=== PATIENT | male | born 1965 | race Caucasian/White ===

== ENCOUNTER 2018-10-11 11:24 | Outpatient (CLI) | payer OTHER, SELFPAY ==
[2018-10-11 13:00] LABS: Cholesterol 194 mg/dL (50-200); HDL Cholesterol 71 mg/dL (40-60); Hemoglobin A1C 5.4 % (4.5-6.2); LDL CHOLESTEROL 108 mg/dL (<100); Triglyceride 71 mg/dL (30-150)
[2018-10-12 10:25] LABS: PSA, Screening 0.5 ng/ml (0-3.5)
== END 2018-10-11 11:44 ==
PROVIDERS: PCP Emergency Medicine; Visit Provider Emergency Medicine
DX: Z00.00 Encounter for general adult medical examination without abnormal findings (principal); E11.9 Type 2 diabetes mellitus without complications; Z12.5 Encounter for screening for malignant neoplasm of prostate; Z13.220 Encounter for screening for lipoid disorders
CPT/HCPCS: 36415; 80061; 83721; 84153; 83036

== ENCOUNTER 2019-10-12 07:00 | Outpatient (CLI) | payer OTHER, SELFPAY ==
[2019-10-12 12:38] LABS: Anion Gap 9.3 mmol/L (3-11); BUN 17 mg/dL (7-18); CO2 29.7 mmol/L (21.0-32.0); CREATININE 0.71 mg/dL (0.70-1.30); Calcium 9.7 mg/dL (8.5-10.1); Chloride 102 mmol/L (98-107); Glucose 95 mg/dL (74-106); Potassium 4.2 mmol/L (3.5-5.1); Sodium 141 mmol/L (136-145)
== END 2019-10-12 07:20 ==
PROVIDERS: PCP Emergency Medicine; Visit Provider Emergency Medicine
DX: I10 Essential (primary) hypertension (principal)
CPT/HCPCS: 36415; 80048

== ENCOUNTER 2021-12-11 01:47 | Outpatient (CLI) | payer BC, SELFPAY ==
[2021-12-11 14:40] LABS: Anion Gap 9.5 mmol/L (3-11); BUN 16 mg/dL (7-18); CO2 28.5 mmol/L (21.0-32.0); CREATININE 0.7 mg/dL (0.70-1.30); Chloride 101 mmol/L (98-107); Glucose 128 mg/dL (74-106); Sodium 139 mmol/L (136-145)
[2021-12-11 22:20] LABS: PSA, Screening 0.5 ng/mL (0.0-3.5)
== END 2021-12-11 01:48 | disposition home or self-care (01) ==
LOC: LBO 01:47
PROVIDERS: Emergency Medicine; PCP Family Medicine; Visit Provider Family Medicine
DX: Z12.5 Encounter for screening for malignant neoplasm of prostate (principal); I10 Essential (primary) hypertension
CPT/HCPCS: 36415; 80048; 84153

== ENCOUNTER 2022-11-10 07:33 | Day surgery (SDC) | payer OTHER, SELFPAY ==
--- NOTE | 2022-11-09 20:02 | W.PM.DSUDISC ---
Date of service: 11/10/22 Time of Service: 09:51 Discharge Plan Disposition Patient Disposition: Home Condition: Good Discharge Details Reason For Visit: Screening colonoscopy Attending Provider: Enzo Corbin Primary Care Provider: Eileen Vasquez Home Meds and New Rx's Prescriptions: Continued latanoprost 0.005 % drops 1 drp ophthalmic (eye) DAILY lisinopril 20 mg tablet 20 mg PO DAILY Qty: 90 3RF Discontinued bisacodyl [Dulcolax (bisacodyl)] 5 mg tablet,delayed release (DR/EC) 5 mg PO ONCE Qty: 4 0RF Rx Instructions: Take according to provider's instructions for colonoscopy prep. polyethylene glycol 3350 17 gram/dose powder 17 g PO ONCE Qty: 238 0RF Rx Instructions: To be taken as directed by prescriber's office for colonoscopy prep. Discharge Instructions Instructions: Colorectal Polyps (GEN) Additional Instructions: Abe, we were able to complete your colonoscopy today without any difficulty. I did find 1 polyp. I removed it. It would take about a week to week and a half to get the results of the pathology report. I will be in touch at that time to notify you of the results. 1. If tolerated, consume a soft, low fiber diet for 1-2 days. 2. Do not drive, drink alcohol, operate machinery, make critical decisions, or do activities that require coordination or balance for 24 hours. 3. Because air was put into your colon during the procedure, expelling air from your rectum (passing gas or farting) is normal. 4. You may not have a bowel movement for 1-3 days because of the colonoscopy prep. This is normal. 5. Go directly to the emergency room if you notice any of the following: Develop chills (warm to touch), or if you have a thermometer and your temperature is above 101 Difficulty breathing or difficultly swallowing Persistent vomiting Severe abdominal pain, other than gas cramps Severe chest pain Black, tarry stools Any bleeding ? exceeding one tablespoon 6. Call your physician if the site where your intravenous was started becomes red, swollen, painful, and warm to touch. 7. Your physician has reviewed your pre-procedure medications. Please continue to take those medications as previously ordered. You will be given specific information/education regarding any changes to your medications before leaving. Activity:: Activity as Tolerated Diet:: As Tolerated Discharge Orders Discharge Orders: Discharge Order (Routine); Ordered 11/09/22 Ordered By: Enzo Corbin DS: Diagnosis Discharge Diagnosis (1) Screening for colon cancer: Status: Acute Asessment and Plan: Follow-up on pathology results from the polypectomy
--- NOTE | 2022-11-09 20:03 | COLE_ITS ---
Date of service: 11/10/22 Time of Service: 09:53 Colonoscopy Report Date of procedure: 11/10/22 Pre-op diagnosis general: Screening colonoscopy Post-op diagnosis procedure note: other (Colon polyp) Procedure: Colonoscopy with polypectomy Surgeon: Enzo Corbin Anesthesia Type: General:No Airway Estimated blood loss (mL): 5 Pathology: other (Colon polyp at 15 cm) Complications: None Disposition: same day Indications: Abe is a 57-year-old male following up for his second screening colonoscopy Prep: Miralax/Dulcolax Procedure Start Time: 09:12 Procedure End Time: :28 Retraction Time: 11 Findings: 1 cm pedunculated polyp at 15 cm from the anal verge Procedure Description: After the induction of monitored anesthetic care, and with the patient in left lateral decubitus position, I began by performing an external anorectal exam.? Perineum and skin were normal, as was the anal verge.? There was no evidence of external hemorrhoids.? Next, I performed a digital rectal exam.? I did not appreciate any abnormal findings.? Next, I advanced a colonoscope into the rectal vault.? I performed retroflexion.? This was normal.? Using insufflation, I then advanced the colonoscope beyond the rectal folds and into the sigmoid c olon before advancing towards the cecum.? The quality of the prep was excellent.? The scope was noted to be in the cecum by identification of the ileocecal valve and appendiceal orifice.? I then began withdrawing the colonoscope using repeated irrigation as necessary for full evaluation of the colonic mucosa. ?Once the scope was withdrawn to the level of the rectum, great care was taken to examine portions of the rectal folds.?Around 15 cm from the anal verge I identified a 0.75 cm polyp. ?It appeared pedunculated in character. ?I was able to remove this with a cold snare polypectomy. ?I examined the site, and there was minimal bleeding. ?Once this was completed, I continued to withdraw the scope and examine the remainder of the colonic mucosa. Finally, the scope was withdrawn and the patient was brought to the same-day surgery recovery unit as the anesthetic wore off. ?The findings and instructions were shared with the patient prior to discharge.
[2022-11-10 07:50] VITALS: BP 122/86; PULSE 80; RESP 16; TEMP 36.5; O2SAT 98
[2022-11-10] MEDS: Lactated Ringers 1,000 ML 80 ML IV (08:10)
--- NOTE | 2022-11-10 08:26 | ANES.PREOP_ITS ---
General Info Date of Service Date Performed: 11/10/22 Height: 5 ft 8 in Weight: 71.8 kg Body Mass Index (BMI): 24.0 Surgical Procedure: Operation Date: 11/10/22 09:20 Proposed Procedure Side Surgeon eduardo Corbin MD Meds Allergies and Home Medications Allergies Allergy/AdvReac Type Severity Reaction Status Date / Time oxycodone HCl [From Percocet] AdvReac Intermediate NAUSEA AND Verified 11/10/22 07:58 VOMITING Home Medication Medication Instructions Recorded latanoprost 0.005 % eye drops 1 drp ophthalmic (eye) DAILY 11/19/20 lisinopril 20 mg tablet 20 mg PO DAILY #90 tabs 12/07/21 Current Visit Medications: Current Medications Generic Name Dose Route Start Last Admin Trade Name Freq PRN Reason Stop Dose Admin Hyoscyamine Sulfate 0.125 mg 11/09/22 20:04 Hyoscyamine 0.125 Mg Sl/Oral/Chew SL PRN PRN Ringer's Solution 1,000 mls @ 80 mls/hr 11/10/22 06:00 11/10/22 08:10 IV 12/09/22 23:59 80 mls/hr INFUSION AMANDO Administration IV Miscellaneous Supplies 1 each 11/10/22 06:00 Iv Access IV 12/09/22 23:59 DIRECTED AMADNO Ondansetron HCl 4 mg 11/09/22 20:04 Ondansetron 4 Mg/2 Ml Vial IVP Q4H PRN PRN Nausea / Vomiting Sodium Chloride 0 ml 11/10/22 06:00 Normal Saline Flush 10 Ml Syr IV 12/09/22 23:59 PRN PRN Sodium Chloride 0 ml 11/10/22 06:00 Normal Saline 10 Ml Vial IJ 12/09/22 23:59 DIRECTED PRN Sterile Water 0 ml 11/10/22 06:00 Water,Injection,Sterile 10 Ml Vial IJ 12/09/22 23:59 DIRECTED PRN PFSH Active Problems Active Problems: Problem Status Onset Code Rosacea L71.9 Kidney stone 08/25/05 N20.0 Unspecified essential hypertension 03/22/13 I10 Screening for colon cancer Z12.11 Medical History Medical History 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) History of tobacco use Quit 1999, 20 packyr hx Right retinal detachment surgically repaired in 2020 Surgical History Surgical History H/O colonoscopy History of eye surgery surgery for retinal detachment Tobacco Smoking/Tobacco Use Status: Former Tobacco Use Passive smoking exposure: No Second hand exposure: No Alcohol Alcohol Intake: current Alcohol intake frequency: a few times a week Alcohol type: beer and wine Substance Use Substance use: Never Substance use type: does not use Vital Signs and Lab Results Vital Signs Most Recent Vital Signs in EMR: Most Recent Vital Signs Temp Pulse Resp BP Pulse Ox 36.5 C 80 16 122/86 98 11/10/22 07:50 11/10/22 07:50 11/10/22 07:50 11/10/22 07:50 11/10/22 07:50 Lab Results Blood Type / Crossmatch: No Data to Display Complete Blood Count: No Data to Display Complete Metabolic Panel: No Data to Display Liver Function Panel: No Data to Display Coagulation Panel: No Data to Display Cardiac Panel: No Data to Display Arterial Blood Gas: No Data to Display Venous Blood Gas: No Data to Display Pancreas Panel: No Data to Display Thyroid Panel: 2 No Data to Display Infectious Disease: No Data to Display Blood Cultures: No Data to Display Toxicology Panel: No Data to Display Anesthesia Assessment and Plan Anesthesia History Personal History: No History of Anesthesia Complications Family History: No Family History of Anesthesia Complications Exercise Tolerance Exercise Tolerance: Metabolic Equivalents>4 Pertinent Negatives Pertinent Negatives: No Symptoms of GERD Cardiac & Pulmonary Exam Cardiac Exam: Normal S1/S2 Heart Sounds Pulmonary Exam: Clear Bilateral Breath Sounds Implantable Cardiac Device Does patient have a Pacemaker or an ICD?: No Airway Exam Known Difficult Airway: No Mallampati Class: 2 Mouth Opening: Normal (> 3cm) Thyromental Distance: Greater than 3 cm Neck Range of Motion: Full ROM Neck Circumference: Normal Teeth Condition: Normal Dentition ASA Classification ASA Score: ASA 2 Emergency Case?: No NPO Status NPO Status: NPO Clears >2 hours, Solids >8 hours Anesthesia Plan Resuscitation Status: Full Code Anesthesia Technique: General Anesthesia Airway Planned: Natural Airway Monitors Used: Standard Monitors
[2022-11-10 08:58] VITALS: BMI 24.0
--- NOTE | 2022-11-10 09:26 | BOWEL_PTH ---
PATIENT: Abe Gagnon LOC: [facility] U#:[id number] AGE/SX: 57/M ROOM: RE11/10/[address]: Enzo Corbin MD : 1965 BED: DIS: 11/10/2022 SPEC #: [id number] RECD: 11/10/22 12:28 STATUS: JENNY REAdia #: [id number] PB: 11/10/22 09:[address]: Enzo Corbin DEPT: Surgical Specimen RECD BY: Rosie Damon ENTERED: 11/10/22 12:29 SP TYPE: Bowel OTHR DR: Eileen Vasquez Tissues: 1 - BIOPSY BOWEL Procedures: GROSS AND MICRO LEVEL 4 Comments: [id number]
[2022-11-10 09:35] VITALS: BP 114/73; PULSE 73; RESP 16; TEMP 36.2; O2SAT 95
--- NOTE | 2022-11-10 09:47 | W.ANESPOSTOP ---
Postoperative Evaluation Date, Time and Location Date Performed: 11/10/22 Time Performed: 09:47 Patient Location: Day Surgery Unit Vital Signs Most Recent Imported Vital Signs: Most Recent Vital Signs Temp Pulse Resp BP Pulse Ox 36.2 C L 73 16 114/73 95 11/10/22 09:35 11/10/22 09:35 11/10/22 09:35 11/10/22 09:35 11/10/22 09:35 Pain Score Most Recent Pain Score: Most Recent Pain Score Pain Level 0 11/10/22 07:50 Assessment Mental Status: Awake (Alert & Oriented to Patient Baseline) Airway and Respiratory Function: Patent airway with normal (patient baseline) respiratory exam Cardiovascular Function: Hemodynamically Stable Hydration Status: Adequately Hydrated Nausea & Vomiting: No Nausea or Vomiting Pain: Pt. Denies Any Pain Peripheral Nerve Block: Patient did not receive a nerve block
[2022-11-10 10:00] VITALS: BP 122/75; PULSE 72; RESP 16; TEMP 36.4; O2SAT 96
== END 2022-11-10 10:44 | disposition home or self-care (01) ==
PROVIDERS: PCP Family Medicine; Visit Provider Surgery
PROC: 0DJD8ZZ Inspection of Lower Intestinal Tract, Via Natural or Artificial Opening Endoscopic (ICD-10-PCS; CPT 45378; principal; 2022-11-10 09:15)
DX: Z12.11 Encounter for screening for malignant neoplasm of colon (principal); D12.8 Benign neoplasm of rectum
CPT/HCPCS: 45385; 88305

== ENCOUNTER 2023-01-18 03:08 | Outpatient (CLI) | payer OTHER, SELFPAY ==
[2023-01-18 16:51] LABS: Hemoglobin A1C 5.3 % (<5.7)
[2023-01-18 17:03] LABS: Anion Gap 8.8 mmol/L (3-11); BUN 21 mg/dL (7-18); CO2 26.2 mmol/L (21.0-32.0); CREATININE 0.8 mg/dL (0.70-1.30); Calcium 8.9 mg/dL (8.5-10.1); Calculated LDL 139 mg/dL (<100); Chloride 101 mmol/L (98-107); Cholesterol 222 mg/dL (<200); Estimated GFR 102.58 (mL/min/1.73m2); Glucose 92 mg/dL (74-106); HDL Cholesterol 64 mg/dL (40-60); Potassium 4.1 mmol/L (3.5-5.1); Sodium 136 mmol/L (136-145); Triglyceride 98 mg/dL (<150)
[2023-01-20 10:36] LABS: PSA, Screening 0.5 ng/mL (<=3.5)
== END 2023-01-18 03:09 | disposition home or self-care (01) ==
LOC: LBO 03:09
PROVIDERS: Emergency Medicine; PCP Family Medicine; Visit Provider Family Medicine
DX: E11.9 Type 2 diabetes mellitus without complications (principal); I10 Essential (primary) hypertension; Z12.5 Encounter for screening for malignant neoplasm of prostate
CPT/HCPCS: 36415; 80048; 80061; 84153; 83036

== ENCOUNTER 2024-01-31 08:25 | Outpatient (CLI) | payer OTHER, SELFPAY ==
[2024-01-31 12:37] LABS: Calculated LDL 137 mg/dL (<100); Cholesterol 232 mg/dL (<200); HDL Cholesterol 73 mg/dL (40-60); Triglyceride 112 mg/dL (<150)
[2024-01-31 12:43] LABS: Anion Gap 9.7 mmol/L (3-11); BUN 18 mg/dL (7-18); CO2 28.3 mmol/L (21.0-32.0); CREATININE 0.8 mg/dL (0.70-1.30); Calcium 9.1 mg/dL (8.5-10.1); Chloride 104 mmol/L (98-107); Estimated GFR 101.32 (mL/min/1.73m2); Glucose 97 mg/dL (74-106); Potassium 4.1 mmol/L (3.5-5.1); Sodium 142 mmol/L (136-145)
[2024-01-31 19:01] LABS: Hepatitis C Ab w Rflx HCV PCR Negative (Negative)
== END 2024-01-31 08:26 | disposition home or self-care (01) ==
LOC: LOS 08:26
PROVIDERS: PCP Family Medicine; Referring Provider Family Medicine; Visit Provider Family Medicine
DX: I10 Essential (primary) hypertension (principal); E78.5 Hyperlipidemia, unspecified; Z11.59 Encounter for screening for other viral diseases
CPT/HCPCS: 36415; 80048; 80061; 86803; 84443

== ENCOUNTER 2025-03-21 01:02 | Outpatient (CLI) | payer OTHER, SELFPAY ==
[2025-03-21 09:58] LABS: Anion Gap 6.2 mmol/L (3-11); BUN 12 mg/dL (7-18); CO2 30.8 mmol/L (21.0-32.0); CREATININE 0.7 mg/dL (0.70-1.30); Calculated LDL 140 mg/dL (<100); Chloride 103 mmol/L (98-107); Cholesterol 226 mg/dL (<200); Estimated GFR 104.83 (mL/min/1.73m2); Glucose 94 mg/dL (74-106); HDL Cholesterol 68 mg/dL (>or=40); Potassium 3.9 mmol/L (3.5-5.1); Sodium 140 mmol/L (136-145); Triglyceride 91 mg/dL (<150)
[2025-03-21 18:20] LABS: PSA, Screening 0.8 ng/mL (<=4.5)
== END 2025-03-21 01:03 | disposition home or self-care (01) ==
LOC: LBO 01:02
PROVIDERS: PCP Family Medicine; Visit Provider Family Medicine
DX: Z13.6 Encounter for screening for cardiovascular disorders (principal); I10 Essential (primary) hypertension; Z12.5 Encounter for screening for malignant neoplasm of prostate
CPT/HCPCS: 36415; 80048; 80061; 84153